=== PATIENT | female | born 1960 | race Caucasian/White ===

== ENCOUNTER 2016-06-28 08:29 | Emergency (ER) | END 2016-06-28 09:40 | disposition home or self-care (01) | DX: J06.9 Acute upper respiratory infection, unspecified (principal) ==

== ENCOUNTER 2016-11-06 10:11 | Emergency (ER) | payer OTHER ==
[~2016-11-06] VITALS: Ht 157.5 cm; Wt 79.0 kg
[~2016-11-06 10:11] MED LIST: BENZ100C70 PO; D-ME473S18 PO; FLUT9.9S NASAL; PSEU30TA38 PO
[2016-11-06 10:15] VITALS: Ht 157.5 cm; Wt 79.0 kg
[2016-11-06] MEDS ORDERED: AMO500 PO (10:34)
[2016-11-06] MEDS ORDERED: LIDO20SO19 MM (10:34)
--- NOTE | 2016-11-06 11:12 | ERD ---
ER Documentation Chief Complaint Date/Time DATE: 11/06/16 TIME: 11:10 Chief Complaint left jaw pain x 5 days HPI 56-year-old female comes in with left-sided facial swelling that started 5 days ago. She states that there is a small sore in the left upper side of her mouth and goes to her cheek. Pain is localized, worse with direct pressure, described as sharp. She has tried rinsing the area with warm water without any relief. She has not had any fevers or chills or dental pain. Denies trauma. No trouble swallowing or opening or closing the jaw. ROS All systems reviewed and are negative except as per history of present illness. Medications Home Meds Active Scripts Lidocaine (Lidocaine Viscous) 100 Ml Soln, 10 ML MM BID, #100 ML Prov:JESSENIA GARDUNO PA-C 11/06/16 Amoxicillin* (Amoxicillin*) 500 Mg Cap, 500 MG PO TID for 10 Days, CAP Prov:JESSENIA GARDUNO PA-C 11/06/16 Dextromethorphan Hb-Promethazine Hcl (Promethazine DM Syrup) 473 Ml Syrup, 5 ML PO Q6H Y for COUGH, #4 OZ Prov:WM WANG PA-C 06/28/16 Benzonatate* (Tessalon Perle*) 100 Mg Capsule, 100 MG PO TID, #30 CAP Prov:WM WANG PA-C 06/28/16 Fluticasone Propionate (Flonase Allergy Relief) 9.9 Ml [place].susp, 1 SPRAY NASAL DAILY, #1 BOTTLE TO EACH NOSTRIL Prov:WM WANG PA-C 06/28/16 Pseudoephedrine Hcl* (Pseudoephedrine Hcl*) 30 Mg Tablet, 30 MG PO Q6 Y for CONGESTION, #30 TAB Prov:WM WANG PA-C 06/28/16 Allergies Allergies: Coded Allergies: No Known Allergy (Unverified , 09/24/13) PMhx/Soc History of Surgery: Yes (30 years ago) Anesthesia Reaction: No Hx Neurological Disorder: No Hx Respiratory Disorders: No Hx Cardiac Disorders: No Hx Psychiatric Problems: No Hx Miscellaneous Medical Probl: No Hx Alcohol Use: No Hx Substance Use: No Hx Tobacco Use: No Physical Exam Vitals Vital Signs Date Time Temp Pulse Resp B/P Pulse Ox O2 Delivery O2 Flow Rate FiO2 11/06/16 10:15 98.1 78 18 133/63 99 Physical Exam General: Well-developed, well-nourished. The patient appears in no acute distress. HEENT: Head is normocephalic, atraumatic. No scleral icterus. No dental infection, gingival is normal, there is a sore on the left upper side of the mouth, is approximately 1.5 cm, white, without erythema, induration or fluctuance, it is tender to palpation. There is mild facial swelling involved correlating to below the left zygomatic arch, there are no bony deformities, no abscess or cellulitis to the skin. Neck: Supple. Nontender. Lungs: Clear to auscultation. Normal air movement. Heart: Regular rate and rhythm. S1 and S2 are normal. No murmurs, gallops, or rubs. Abdomen: Nondistended. Extremities: No clubbing or cyanosis. Moving extremities x 4. No weakness. Neurologic: Alert and oriented 3. No focal deficits. Normal speech and gait. Skin: Normal turgor. No rash or lesions. Procedures/MDM 56-year-old female comes in with a mouth sore, there is localized swelling, the swelling does go to the sheet given the location however there is no evidence of facial cellulitis or abscess, dental abscess, trismus, jaw fracture jaw dislocation. She will be given viscous lidocaine for swishing for symptomatic relief and amoxicillin given the presentation for 5 days with swelling. Departure Diagnosis: Primary Impression: Mouth sore Condition: Good Patient Instructions: Stomatitis (Child) Additional Instructions: Call your primary care doctor TOMORROW for an appointment during the next 1-2 days.See the doctor sooner or return here if your condition worsens before your appointment time. JESSENIA GARDUNO PA-C Nov 06, 2016 11:12
== END 2016-11-06 10:52 | disposition home or self-care (01) ==
LOC: FTE 10:11
DX: K13.79 Other lesions of oral mucosa (principal)
CPT/HCPCS: 99284

== ENCOUNTER 2017-02-18 19:59 | Inpatient (IN) | payer OTHER ==
[~2017-02-18] VITALS: Ht 149.9 cm; Wt 82.6 kg
[~2017-02-18 19:59] MED LIST changes: +AMOX500C2 PO; +LIDO20SO19 MM
[2017-02-18] MEDS ORDERED: ASPIRIN 325 MG TAB PO STA (20:27)
--- NOTE | 2017-02-18 20:46 | RADRPT ---
PROCEDURE: XR Chest. CLINICAL INDICATION: Chest pain. TECHNIQUE: Single frontal view. COMPARISON: 09/24/2013. FINDINGS: The lungs are clear. The heart size is normal. There is no pleural effusion. There is no pneumothorax. There is left shoulder calcific tendonitis. IMPRESSION: 1. Left shoulder calcific tendonitis. 2. Otherwise normal chest radiograph. 3. No other change from 09/24/2013. RPTAT: QQ .Darrin Miller MD, MD Date Time Electronically viewed and signed by .Darrin Miller MD, MD on 02/18/2017 20:46 .R/
[2017-02-18 21:30] LABS: BASOPHIL # 0.1 10^3/ul (0.0-0.1); BASOPHILS % 0.8 % (0.0-2.0); EOSINOPHILS # 0.4 10^3/ul (0.0-0.5); EOSINOPHILS % 3.8 % (0.0-7.0); HEMATOCRIT 36.4 % (37.0-47.0); HEMOGLOBIN 12.3 g/dl (12.0-16.0); LYMPHOCYTES # 3.9 10^3/ul (0.8-2.9); LYMPHOCYTES % 34.1 % (15.0-51.0); MEAN CORPUSCULAR HEMOGLOBIN 28.5 pg (29.0-33.0); MEAN CORPUSCULAR HGB CONC 33.8 g/dl (32.0-37.0); MEAN CORPUSCULAR VOLUME 84.5 fl (82.0-101.0); MEAN PLATELET VOLUME 12.7 fl (7.4-10.4); MONOCYTE # 0.7 10^3/ul (0.3-0.9); MONOCYTES % 6.3 % (0.0-11.0); NEUTROPHIL # 6.3 10^3/ul (1.6-7.5); NEUTROPHILS % 54.5 % (39.0-77.0); PLATELET COUNT 146 10^3/UL (140-415); RED BLOOD COUNT 4.31 10^6/ul (4.20-5.40); RED CELL DISTRIBUTION WIDTH 14.7 % (11.5-14.5); WHITE BLOOD COUNT 11.6 10^3/ul (4.8-10.8)
[2017-02-18 21:44] LABS: INR 0.92; PROTIME 12.4 Sec (12.2-14.2)
[2017-02-18 21:46] LABS: ALANINE AMINOTRANSFERASE 74 IU/L (13-69); ALBUMIN 4.1 g/dl (3.3-4.9); ALBUMIN/GLOBULIN RATIO 1.05; ALKALINE PHOSPHATASE 118 IU/L (42-121); ANION GAP 12 (8-16); ASPARTATE AMINO TRANSFERASE 49 IU/L (15-46); BILIRUBIN,INDIRECT 0.3 mg/dl (0-1.1); BILIRUBIN,TOTAL 0.3 mg/dl (0.2-1.3); BLOOD UREA NITROGEN 22 mg/dl (7-20); CARBON DIOXIDE 26 mmol/L (21-31); CHLORIDE 106 mmol/L (97-110); CREATINE KINASE 79 IU/L (23-200); CREATININE 1.15 mg/dl (0.44-1.00); GLUCOSE 105 mg/dl (70-220); POTASSIUM 4.2 mmol/L (3.5-5.1); SODIUM 140 mmol/L (135-144)
[2017-02-18 21:59] LABS: B-TYPE NATRIURETIC PEPTIDE 56 PG/ML (0-125); CK-MB 1.46 ng/ml (0.0-2.4)
[2017-02-18 22:06] LABS: TROPONIN-I < 0.012 ng/ml (0.00-0.12)
--- NOTE | 2017-02-18 22:22 | ERA ---
ER Documentation Chief Complaint Date/Time DATE: 02/18/17 TIME: 22:17 Chief Complaint chest pain x 2 days HPI This is a 57-year-old female with no past medical history presents to the emergency department complaining of 2 days of intermittent chest pressure. She states the chest pressure is localized to the left side. It does radiate to the left arm. She stated the pain will last for roughly 20 seconds and then spontaneously resolved. She has had roughly 10 episodes of this chest pain in the past 48 hours but significantly worsened just prior to arrival where was 7 out of 10 in intensity. She states the pain does not radiate to the back. She had associated symptoms of nausea but experienced no diaphoresis or emesis. She indicates she does not smoke cigarettes. Her mother had a heart attack at 79 years of age. She denies any shortness of breath at rest or exertion. She denies any blunt or penetrating chest or abdominal trauma. She did not take any analgesic medication prior to arrival ROS All systems reviewed and are negative except as per history of present illness. Medications Home Meds Active Scripts Lidocaine (Lidocaine Viscous) 100 Ml Soln, 10 ML MM BID, #100 ML Prov:JESSENIA GARDUNO PA-C 11/06/16 Amoxicillin* (Amoxicillin*) 500 Mg Cap, 500 MG PO TID for 10 Days, CAP Prov:JESSENIA GARDUNO PA-C 11/06/16 Dextromethorphan Hb-Promethazine Hcl (Promethazine DM Syrup) 473 Ml Syrup, 5 ML PO Q6H Y for COUGH, #4 OZ Prov:WM WANG PA-C 06/28/16 Benzonatate* (Tessalon Perle*) 100 Mg Capsule, 100 MG PO TID, #30 CAP Prov:WM WANG PA-C 06/28/16 Fluticasone Propionate (Flonase Allergy Relief) 9.9 Ml [place].susp, 1 SPRAY NASAL DAILY, #1 BOTTLE TO EACH NOSTRIL Prov:WM WANG PA-C 06/28/16 Pseudoephedrine Hcl* (Pseudoephedrine Hcl*) 30 Mg Tablet, 30 MG PO Q6 Y for CONGESTION, #30 TAB Prov:WM WANG PA-C 06/28/16 Allergies Allergies: Coded Allergies: No Known Allergy (Unverified , 02/18/17) PMhx/Soc History of Surgery: Yes (30 years ago) Anesthesia Reaction: No Hx Neurological Disorder: No Hx Respiratory Disorders: No Hx Cardiac Disorders: No Hx Psychiatric Problems: No Hx Miscellaneous Medical Probl: No Hx Alcohol Use: No Hx Substance Use: No Hx Tobacco Use: No Smoking Status: Never smoker Physical Exam Vitals Vital Signs Date Time Temp Pulse Resp B/P Pulse Ox O2 Delivery O2 Flow Rate FiO2 02/18/17 20:06 98.9 76 20 141/66 97 Physical Exam Constitutional:Well-developed. Well-nourished. HEENT:Normocephalic. Atraumatic.Pupils were equal round reactive to light. Moist mucous membranes.No tonsillar exudates. Neck: No nuchal rigidity. No lymphadenopathy. No posterior cervical spine tenderness or step-offs. Respiratory: Not using accessory muscles of respiration.Lungs were clear to auscultation bilaterally. No rhonchi. No rales. No wheezing. Cardiovascular: Regular rate regular rhythm.No murmurs. No rubs were appreciated.S1, S2 normal. Distal pulses are palpable 2+ bilaterally. GI: Abdomen was soft. Nontender. Non Distended. No pulsatile abdominal masses or bruits. No rebound. No guarding. Bowel sounds were present and normal. Muscle skeletal: Full range of motion of both the upper and lower extremities bilaterally.Normal muscle tone.No assymetrical calf tenderness or swelling. Skin: No petechia, no purpura. No lesions on the palms or the soles of the feet. No maculopapular rash. NEURO: Patient was alert, awake, orientated x3.No facial droop. Gait observed and normal with no ataxia.Speech had regular rate and rhythm. No focal neurological deficits. Result Diagram: 02/18/17204402/18/172044 Results 24 hrs Laboratory Tests Test 02/18/17 20:45 White Blood Count 11.610^3/ul Red Blood Count 4.3110^6/ul Hemoglobin 12.3g/dl Hematocrit 36.4% Mean Corpuscular Volume 84.5fl Mean Corpuscular Hemoglobin 28.5pg Mean Corpuscular Hemoglobin Concent 33.8g/dl Red Cell Distribution Width 14.7% Platelet Count 82150^3/UL Mean Platelet Volume 12.7fl Neutrophils % 54.5% Lymphocytes % 34.1% Monocytes % 6.3% Eosinophils % 3.8% Basophils % 0.8% Nucleated Red Blood Cells % 0.0/100WBC Neutrophils # 6.310^3/ul Lymphocytes # 3.910^3/ul Monocytes # 0.710^3/ul Eosinophils # 0.410^3/ul Basophils # 0.110^3/ul Nucleated Red Blood Cells # 0.010^3/ul Prothrombin Time 12.4Sec Prothrombin Time Ratio 1.0 INR International Normalized Ratio 0.92 Activated Partial Thromboplast Time 35.0Sec Sodium Level 140mmol/L Potassium Level 4.2mmol/L Chloride Level 106mmol/L Carbon Dioxide Level 26mmol/L Anion Gap 12 Blood Urea Nitrogen 22mg/dl Creatinine 1.15mg/dl Glucose Level 105mg/dl Calcium Level 9.0mg/dl Total Bilirubin 0.3mg/dl Direct Bilirubin 0.00mg/dl Indirect Bilirubin 0.3mg/dl Aspartate Amino Transf (AST/SGOT) 49IU/L Alanine Aminotransferase (ALT/SGPT) 74IU/L Alkaline Phosphatase 118IU/L Creatine Kinase 79IU/L Creatine Kinase Index 1.8 Creatinine Kinase MB (Mass) 1.46ng/ml Troponin I < 0.012ng/ml B-Type Natriuretic Peptide 56PG/ML Total Protein 8.0g/dl Albumin 4.1g/dl Globulin 3.90g/dl Albumin/Globulin Ratio 1.05 Lipase 76U/L Current Medications Medications (Trade) Dose Ordered Sig/Randy Route PRN Reason Start Time Stop Time Status Last Admin Dose Admin Aspirin (Aspirin) 325 mg ONCE STAT PO 02/18/17 20:27 02/18/17 20:29 DC 02/18/17 21:01 Nitroglycerin (Nitroglycerin (Sl Tab) 0.4 Mg) 1 tab Q5M UP TO 3 DOSES PRN SL CHEST PAIN 02/18/17 20:30 Procedures/MDM The patient presented to the emergency department with chest pain. My clinical evaluation and workup was to distinguish minor causes of chest pain from acute life threatening conditions such as myocardial infarction, pulmonary embolism, aortic dissection, esophageal rupture, cardiac tamponade. The patient was placed on a monitoring tech and continuous pulse oximetry. IV access established by nursing staff. The patient was given 325 mg of aspirin and 0.4 mg of nitroglycerin. The pain improved. I did feel the patient required admission for serial 12-lead EKG tracings and cardiac set of enzymes. The patient's troponin was normal that the patient had changes on her 12-lead EKG tracing I did feel she required admission there was no evidence however of ST segment elevation. 12 Lead EKG tracing ordered and reviewed by myself showed: Normal sinus rhythm of 73 bpm and no arrhythmia. MS interval normal. QRS duration 1 into the 130 ms with an RSR prime pattern and a right bundle branch block. There is also left ventricular hypertrophy utilizing the Arnulfo criteria No ST segment elevation No ST segment depression. No changes consistent with acute ischemia. The patient's primary care physician does not admit to this hospital and therefore the patient will be admitted to the hospitalist. Departure Diagnosis: Primary Impression: Chest pain Qualified Code: R07.9 - Chest pain, unspecified type Condition: LORENA Infante Feb 18, 2017 22:22
--- NOTE | 2017-02-18 23:45 | HP ---
Date/Time of Note Date/Time of Note DATE: 02/18/17 TIME: 23:40 Assessment/Plan VTE Prophylaxis VTE Prophylaxis Intervention: LMWH Lines/Catheters IV Catheter Type (from Nrs): Saline Lock Assessment/Plan Chief Complaint/Hosp Course This is a 49 year female being admitted to the telemetry floor for: #1 chest pain: Rule out ACS versus other cardiac etiology. The patient reports symptoms of orthopnea and lower extremity swelling and chest pain her BNP is 56 which does make CHF less likely. However we will obtain an echocardiogram to evaluate the heart morphology. We will trend cardiac enzymes 3 4 set was negative. Will consult cardiology. The lower extremity edema could also be part of obstructive sleep apnea versus obesity hypoventilation syndrome. Her EKG was normal sinus rhythm at 70 bpm approximately end of note there was also right bundle branch block. #2 obesity: We will check a hemoglobin A1c, lipid panel, TSH. Her lower extremity edema may also be a combination of obstructive sleep apnea versus obesity hypoventilation syndrome secondary to her obesity. #3 HPI: Previous creatinine was 0.84 from some years ago. This likely could be prerenal etiology at this time. Will obtain a urine microscopic and trend BMPs to see if creatinine improves with p.o. fluid hydration. #4 history of CVA: Patient does not have any residual focal neurological deficits or any hemiparesis. Not on any medications at this time. Patient likely will need to be initiated on statin and aspirin prior to discharge #5 hyperlipidemia: Check lipid panel #6 mild transaminitis: Patient denies any right upper quadrant pain. At the current time will monitor this and if there remains elevation in LFTs will order right upper quadrant ultrasound. #7 DVT and GI prophylaxis: Lovenox, acid hola Further treatment strategy will be implemented as per the clinical course Problems: HPI/ROS Admit Date/Time Admit Date/Time Hx of Present Illness cc: chest pain This is a 57-year-old female with no past medical history presents to the emergency department complaining of 2 days of intermittent chest pressure. She states the chest pressure is localized to the left side. It does radiate to the left arm. She stated the pain will last for roughly 20 seconds and then spontaneously resolved. She has had roughly 10 episodes of this chest pain in the past 48 hours but significantly worsened just prior to arrival where was 7 out of 10 in intensity. She states the pain does not radiate to the back. She had associated symptoms of nausea but experienced no diaphoresis or emesis. She indicates she does not smoke cigarettes. Her mother had a heart attack at 79 years of age. She does report that at times she feels short of breath when she is lying down flat and sometimes she notices her feet being swollen. She denies any blunt or penetrating chest or abdominal trauma. She did not take any analgesic medication prior to arrival allergies: nkda meds: see jul ROS Const: As per HPI Eyes : No pain discharge or redness or change in visual acuity ENT: No pain, sore throat, congestion, congestion, dysphagia or discharge Respiratory: As per HPI Cardiovascular: As per HPI GI : no change in appetite, abdominal pain, nausea, vomiting, diarrhea, constipation, or change in the color his stool Genitourinary: No dysuria, hematuria, flank pain , discharge or CVA tenderness Musculoskeletal: No joint pain, back pain, neck pain, restricted range of motion in neck or joints Skin: No rash, bruising or hives Neuro: No headache, dizziness, syncope, seizure, focal weakness Endocrine: No polyuria, polydipsia, temperature intolerance Psych: No hallucination, depression, anxiety or suicidal ideation Vascular: As per HPI PMH/Family/Social Past Medical History hld, cva Past Surgical History x 3 Family History Significant Family History: cancer (gastric ca), diabetes, hypertension Social History Alcohol Use: none Smoking Status: Never smoker Drug Use: none Exam/Review of Systems Vital Signs Vitals Vital Signs Date Time Temp Pulse Resp B/P Pulse Ox O2 Delivery O2 Flow Rate FiO2 02/18/17 22:30 70 17 125/65 96 Room Air 02/18/17 20:06 98.9 Exam Exam General: Patient is a obese female lying in bed in no acute distress HEENT: Atraumatic, normocephalic. The pupils are equal, round and reactive. Extraocular motor are intact Neck: Supple with full range of motion. No rigidity or meningismus Chest: Nontender Lungs: Clear to auscultation bilaterally no crackles rales or wheezing Heart: Normal S1-S2, Regular rhythm and rate. Possible left-sided systolic murmur Abdomen: Soft , nontender, nondistended , bowel sounds are present. No guarding no rebound tenderness , No masses or organomegaly. No costovertebral temporal angle mass Extremities: Normal to inspection, no edema no cyanosis, n Neurologic: Normal mental status, speech normal, cranial nerves II through XII are intact, motor and sensory are intact, no focal weakness Additional Comments Normal sinus rhythm of 73 bpm and no arrhythmia. [place] interval normal. QRS duration 1 into the 130 ms with an RSR prime pattern and a right bundle branch block. No ST segment elevation No ST segment depression. No changes consistent with acute ischemia. As per ED physician augmentation PROCEDURE: XR Chest. CLINICAL INDICATION: Chest pain. TECHNIQUE: Single frontal view. COMPARISON: 09/24/2013. FINDINGS: The lungs are clear. The heart size is normal. There is no pleural effusion. There is no pneumothorax. There is left shoulder calcific tendonitis. IMPRESSION: 1. Left shoulder calcific tendonitis. 2. Otherwise normal chest radiograph. 3. No other change from 09/24/2013. RPTAT: QQ .Darrin Miller MD, MD Date Time Electronically viewed and signed by .Darrin Miller MD, MD on 02/18/2017 20:46 .R/ CC: LORENA CHAPIN Labs Result Diagram: 02/18/17204402/18/172044 SONIYA DUNN Feb 18, 2017 23:45
[2017-02-19] VITALS (12 sets, daily range): BP systolic 111–152; BP diastolic 57–70; PULSE 62–75; RESP 17–19; Ht 149.9 cm; Wt 82.6 kg
[2017-02-19] MEDS ORDERED: NACL 0.9% 3 ML SYG IV SCH
[2017-02-19] MEDS ORDERED: ACETAMINOPHEN 325 MG TAB PO PRN
[2017-02-19] MEDS ORDERED: ONDANSETRON 4 MG INJ IV PRN
[2017-02-19] MEDS ORDERED: DOCUSATE SODIUM 100 MG CAP PO PRN
[2017-02-19] MEDS ORDERED: morphine 2 MG INJ IV PRN
[2017-02-19] MEDS ORDERED: BISACODYL (EC) 5 MG TAB PO PRN
[2017-02-19 07:16] LABS: BASOPHIL # 0.1 10^3/ul (0.0-0.1); EOSINOPHILS # 0.5 10^3/ul (0.0-0.5); EOSINOPHILS % 4.6 % (0.0-7.0); HEMATOCRIT 36.2 % (37.0-47.0); HEMOGLOBIN 11.2 g/dl (12.0-16.0); LYMPHOCYTES # 3.1 10^3/ul (0.8-2.9); LYMPHOCYTES % 31.8 % (15.0-51.0); MEAN CORPUSCULAR HEMOGLOBIN 26.2 pg (29.0-33.0); MEAN CORPUSCULAR HGB CONC 30.9 g/dl (32.0-37.0); MEAN CORPUSCULAR VOLUME 84.8 fl (82.0-101.0); MONOCYTE # 0.6 10^3/ul (0.3-0.9); MONOCYTES % 5.7 % (0.0-11.0); NEUTROPHIL # 5.5 10^3/ul (1.6-7.5); NEUTROPHILS % 56.5 % (39.0-77.0); PLATELET COUNT 130 10^3/UL (140-415); RED BLOOD COUNT 4.27 10^6/ul (4.20-5.40); WHITE BLOOD COUNT 9.7 10^3/ul (4.8-10.8)
[2017-02-19 07:27] LABS: INR 0.97; PROTIME 12.9 Sec (12.2-14.2)
[2017-02-19 07:28] LABS: PARTIAL THROMBOPLASTIN TIME 32.6 Sec (25.0-35.0)
[2017-02-19 07:32] LABS: CREATINE KINASE 61 IU/L (23-200)
[2017-02-19 07:34] LABS: ALBUMIN 3.5 g/dl (3.3-4.9); ALBUMIN/GLOBULIN RATIO 0.94; BILIRUBIN,INDIRECT 0.3 mg/dl (0-1.1); BILIRUBIN,TOTAL 0.3 mg/dl (0.2-1.3); CALCIUM 9.1 mg/dl (8.4-10.2); CHOL/HDL RATIO 9.3 RATIO; CREATININE 0.84 mg/dl (0.44-1.00); MAGNESIUM 1.8 mg/dl (1.7-2.5); POTASSIUM 4.5 mmol/L (3.5-5.1); TOTAL PROTEIN 7.2 g/dl (6.1-8.1)
[2017-02-19 07:49] LABS: CK-MB 1.19 ng/ml (0.0-2.4)
[2017-02-19 08:00] LABS: TROPONIN-I < 0.012 ng/ml (0.00-0.12)
[2017-02-19 08:04] LABS: THYROID STIMULATING HORMONE 3.15 MIU/L (0.465-4.680)
[2017-02-19] MEDS: FAMOTIDINE 20 MG TAB PO SCH (09:33)
[2017-02-19] MEDS: ENOXAPARIN 30 MG/0.3 ML SYG SC SCH (09:38)
--- NOTE | 2017-02-19 10:51 | PN ---
Date/Time of Note Date/Time of Note DATE: 02/19/17 TIME: 10:45 Assessment/Plan VTE Prophylaxis VTE Prophylaxis Intervention: LMWH Lines/Catheters [facility] Saline Lock Urinary Cath still in place: No Assessment/Plan Assessment/Plan 1. Left sided chest pain, negative troponin, follow up with cardiology 2. Dyslipidemia with hypertriglyceridemia, start on lopid 3. Acute renal injury, resolved 4. h/o of CVA, aspirin and lopid 5. Obesity 6. DVT and GI prophylaxis: Lovenox, acid hola Subjective 24 Hr Interval Summary Free Text/Dictation no chest pain or shortness of breath today Exam/Review of Systems Vital Signs Vitals Vital Signs Date Time Temp Pulse Resp B/P Pulse Ox O2 Delivery O2 Flow Rate FiO2 02/19/17 08:00 62 02/19/17 07:31 97.6 18 111/57 97 02/18/17 22:30 Room Air Intake and Output 02/18/17 02/18/17 02/19/17 15:00 23:00 07:00 Intake Total 600 ml Balance 600 ml Exam Constitutional: alert, obese, oriented, well developed Psych: nl mood/affect, no complaints Head: atraumatic, normocephalic Eyes: EOMI, PERRL, nl conjunctiva, nl lids ENMT: nl external ears & nose, nl lips & teeth, nl nasal mucosa & septum Neck: non-tender, supple, No bruits, No jvd, No masses, No nuchal rigidity, No other, No thyromegaly Respiratory: clear to auscultation, normal air movement, No congested cough, No crackles/rales, No diminished breath sounds, No intercostal retraction, No labored breathing, No other, No respirations, No tactile fremitus, No wheezing Cardiovascular: nl pulses, regular rate and rhythm, No S3, No S4, No bruits, No diastolic murmur, No edema, No gallop, No irregular rhythm, No jugular venous distention (JVD), No murmurs/extra sounds, No other, No rub, No systolic murmur Gastrointestinal: nl liver, spleen, non-tender, soft, No ascites, No bowel sounds, No distended, No firm, No hepatomegaly, No mass , No other, No rebound or guarding, No splenomegaly, No surgical scars, No tender Musculoskeletal: nl extremities to inspection Extremities: normal pulses, No calf tenderness, No clubbing, No cyanosis, No edema, No other, No palpable cord, No pitting pedal edema, No tenderness Neurological: QA MANAGER II-XII intact, nl mental status, nl speech, nl strength Skin: nl turgor Lymph: nl lymph nodes Results Result Diagram: 02/19/17 0618 02/19/17 0618 Results 24 hrs Laboratory Tests Test 02/18/17 20:45 02/19/17 01:00 02/19/17 06:18 White Blood Count 11.6 H 9.7 Red Blood Count 4.31 4.27 Hemoglobin 12.3 11.2 L Hematocrit 36.4 L 36.2 L Mean Corpuscular Volume 84.5 84.8 Mean Corpuscular Hemoglobin 28.5 L 26.2 L Mean Corpuscular Hemoglobin Concent 33.8 30.9 L Red Cell Distribution Width 14.7 H 15.0 H Platelet Count 146 143 130 L Mean Platelet Volume 12.7 H 12.0 H Neutrophils % 54.5 56.5 Lymphocytes % 34.1 31.8 Monocytes % 6.3 5.7 Eosinophils % 3.8 4.6 Basophils % 0.8 1.0 Nucleated Red Blood Cells % 0.0 0.0 Neutrophils # 6.3 5.5 Lymphocytes # 3.9 H 3.1 H Monocytes # 0.7 0.6 Eosinophils # 0.4 0.5 Basophils # 0.1 0.1 Nucleated Red Blood Cells # 0.0 0.0 Prothrombin Time 12.4 12.9 Prothrombin Time Ratio 1.0 1.0 INR International Normalized Ratio 0.92 0.97 Activated Partial Thromboplast Time 35.0 32.6 Sodium Level 140 139 Potassium Level 4.2 4.5 Chloride Level 106 107 Carbon Dioxide Level 26 26 Anion Gap 12 11 Blood Urea Nitrogen 22 H 21 H Creatinine 1.15 H 0.84 Glucose Level 105 110 Calcium Level 9.0 9.1 Total Bilirubin 0.3 0.3 Direct Bilirubin 0.00 0.00 Indirect Bilirubin 0.3 0.3 Aspartate Amino Transf (AST/SGOT) 49 H 42 Alanine Aminotransferase (ALT/SGPT) 74 H 79 H Alkaline Phosphatase 118 90 Creatine Kinase 79 61 Creatine Kinase Index 1.8 2.0 Creatinine Kinase MB (Mass) 1.46 1.19 Troponin I < 0.012 < 0.012 B-Type Natriuretic Peptide 56 Total Protein 8.0 7.2 Albumin 4.1 3.5 Globulin 3.90 H 3.70 H Albumin/Globulin Ratio 1.05 0.94 Lipase 76 Hemoglobin A1c 6.1 H Magnesium Level 1.8 Triglycerides Level 597 H Cholesterol Level 261 H LDL Cholesterol, Calculated 114 HDL Cholesterol 28 L Cholesterol/HDL Ratio 9.3 Thyroid Stimulating Hormone (TSH) 3.150 Medications Medications Current Medications Ondansetron HCl (Zofran Inj) 4 mg Q6H PRN IV NAUSEA AND/OR VOMITING; Start at 00:00 Acetaminophen (Tylenol Tab) 650 mg Q6H PRN PO PAIN LEVEL 1-3 OR FEVER; Start at 00:00 Morphine Sulfate (morphine) 2 mg Q4H PRN IV PAIN LEVEL 7-10; Start 02/19/17 at 00:00 Docusate Sodium (Colace) 100 mg Q12H PRN PO CONSTIPATION; Start 02/19/17 at 00: 00 Bisacodyl (Dulcolax) 5 mg DAILY PRN PO CONSTIPATION; Start 02/19/17 at 00:00 Famotidine (Pepcid) 20 mg DAILY PO Last administered on 02/19/17 09:33; Admin Dose 20 MG; Start 02/19/17 at 09:00 Enoxaparin Sodium (Lovenox) 30 mg DAILY SC Last administered on 02/19/17 09:38 ; Admin Dose 30 MG; Start 02/19/17 at 09:00 GOLDY SILVERMAN MD Feb 19, 2017 10:51
[2017-02-19] MEDS: NITROGLYCERIN (SL) 0.4 MG TAB SL PRN ×2 (11:44→20:14)
[2017-02-19] MEDS: GEMFIBROZIL 600 MG TAB GTB SCH ×2 (12:56→20:14)
[2017-02-19 13:23] LABS: CREATINE KINASE 59 IU/L (23-200)
[2017-02-19 13:37] LABS: CK-MB 1.15 ng/ml (0.0-2.4); TROPONIN-I < 0.012 ng/ml (0.00-0.12)
--- NOTE | 2017-02-19 15:40 | RADRPT ---
Echocardiogram Report Patient Name: DAVID GARCIA Gender: Female Date: 1960 Study Date: 19-Feb-2017 Child And Adolescent Psychologist: [address] [facility] Location: 5538 Ref. Physician: SONIYA DUNN Quality: Adequate Procedures: Transthoracic echocardiogram with complete 2D, M-Mode, and doppler examination. Indications: Chest Pain. 2D/M Mode Doppler Measurement Value Normal Ranges Measurement Value Normal Ranges LVIDd 2D 3.8 3.5 - 5.6 cm AV Peak Guevara 1.7 m/sec LVIDs 2D 1.9 2.1 - 4.1 cm AV Peak PG 11.0 mmHg LVPWd 2D 1.3 0.6 - 1.1 cm LVOT Peak Guevara 1.1 m/sec IVSd 2D 1.2 0.6 - 1.1 cm LVOT Peak PG 5.2 mmHg AoR Diam 2D 2.2 2.0 - 3.7 cm MV E Peak Guevara 0.8 m/sec EDV 2D 60.0 cm3 MV A Peak Guevara 0.9 m/sec ESV 2D 6.9 cm3 MV E/A 0.9 LA Dimen 2D 2.6 2.3 - 4.0 cm MV Decel Time 196 msec MV Decel Edwards 4 MV E/A 0.9 TR Peak Guevara 2.2 m/sec TR Peak PG 19.1 mmHg RVSP 22.0 mmHg Findings Left Ventricle: Normal left ventricular systolic function. Normal left ventricular cavity size. Moderate concentric left ventricular hypertrophy. Ejection fraction is visually estimated at 65 %. Tissue Doppler/Mitral Doppler indices are consistent with impaired relaxation (Stage I diastolic dysfunction). Right Ventricle: Normal right ventricular size. Normal right ventricular systolic function. Left Atrium: The left atrium is normal in size. Right Atrium: The right atrium is normal in size. Mitral Valve: Mitral valve leaflets appear mildly thickened. Mild mitral annular calcification. Trace mitral regurgitation. Aortic Valve: Normal appearance of the aortic valve. No significant aortic stenosis or insufficiency. Tricuspid Valve: Normal appearance of the tricuspid valve. Estimated peak PA systolic pressure 22 mmHg. There is trace tricuspid regurgitation. Pulmonic Valve: Normal pulmonic valve appearance. Pericardium: Normal pericardium with no significant pericardial effusion. Aorta: Normal aortic root. IVC: Normal size and normal respiratory collapse consistent with normal right atrial pressure. Conclusions 1.Essentially normal heart, structure and function, except grade 1 LV diastolic dysfunction. Electronically Signed By: Ely Fletcher 19-Feb-2017 15:39:58 -0700 Patient Name: DAVID GARCIA Study Date: 19-Feb-2017 [id number]
--- NOTE | 2017-02-19 22:13 | CONS ---
DATE OF ADMISSION: 02/18/2017 DATE OF CONSULTATION: 02/19/2017 REASON FOR CONSULTATION: Chest pain, assess acute coronary syndrome. REFERRING PHYSICIAN: Dr. Orozco from the hospitalist service. HISTORY OF PRESENT ILLNESS: Melvi Hernandez is a 57-year-old female, history of prior CVA, dyslipidemia, who initially underwent complaints of substernal chest pain, described as a pressure-like sensation, left upper chest, radiated to her left arm, occurring at rest. Upon arrival in the emergency department, temperature 98.9, blood pressure 141/66, pulse 76, respiratory rate 20, saturating 97 percent. Patient's labs: White count 11.6, hemoglobin 12.3, platelet count 146. Sodium 140, potassium 4.2, creatinine 0.1, BUN 22, AST 49, ALT 74. LDL 114, HDL 28. TSH 3.1. Triglycerides of 597. INR 0.92. Hemoglobin A1c of 6.1. Patient underwent a chest x-ray, revealing left shoulder calcific tendinitis. Patient's electrocardiogram with normal sinus rhythm, rate of 73, with right bundle-branch block, borderline left axis deviation, left posterior fascicular block, secondary repolarization abnormalities. Patient was subsequently admitted to the floor and since admitted to the floor, has had a total of 3 negative troponins, ruling out for acute myocardial infarction. Patient denies current chest pain but states she had chest pain this morning. Patient underwent a 2D echo interpreted by another ground operations superintendent, revealing a preserved EF. PAST MEDICAL HISTORY: As above in HPI. MEDICATION: Currently in hospital: 1. Lopid 600 mg p.o. b.i.d. 2. Pepcid 20 mg daily. 3. Lovenox subcu daily. 4. p.r.n. 5. Tylenol p.r.n. 6. Morphine p.r.n. 7. Colace p.r.n. 8. Dulcolax. ALLERGIES: NO KNOWN DRUG ALLERGIES. SOCIAL HISTORY: No tobacco, EtOH or illicit drug use. FAMILY HISTORY: No history of early cardiac or early CAD. REVIEW OF SYSTEMS: As above in HPI. CONSTITUTIONAL: No fevers chills. RESPIRATORY: No current shortness of breath. CARDIOVASCULAR: Intermittent chest pain. GASTROINTESTINAL: No vomiting. GENITOURINARY: No hematuria. MUSCULOSKELETAL: Degenerative joint disease. PSYCHIATRIC: Patient denies depression. NEUROLOGIC: A positive history of CVA. PHYSICAL EXAMINATION: VITAL SIGNS: Temperature of 98.5, blood pressure 152/70, pulse 65, respirations 17, satting 92 percent. GENERAL: The patient is alert, awake, in no acute distress. NECK: JVP approximately 8 cm of water. LUNGS: Fair air movement throughout. HEART: Regular rate and rhythm. Normal S1, S2; 1/6 systolic murmur. Nondisplaced PMI. ABDOMEN: Positive bowel sounds, soft. EXTREMITIES: No edema, 1+ pulses, bilateral posterior tibial. LABORATORY: As above in [facility], with most recent today, sodium 139, potassium 4.5, creatinine 0.8, BUN 21. Troponin negative x3. LDL of 114, HDL 28, triglycerides 597, with total cholesterol 261. White blood cell count 9.7, hemoglobin 11.2, platelet count of 130. INR of 0.97. Patient underwent a chest x-ray, revealing no acute cardiopulmonary abnormalities. ECG as above in HPI. No further electrocardiograms for review at this time. IMPRESSION: 1. Chest pain. Assess for acute coronary syndrome. 2. Abnormal electrocardiogram, with right bundle-branch block pattern. 3. History of prior cerebrovascular accident. 4. Dyslipidemia, with low HDL, elevated triglycerides significantly, with increased liver function tests. 5. Renal insufficiency, improved. RECOMMENDATIONS: 1. At this time, would maintain patient on telemetry monitoring to follow rhythm and rate control closely. 2. Continue the patient's sublingual nitroglycerin. 3. Would continue the patient's Lopid at this time for treatment of hypertriglyceridemia. 4. The patient is status post 2D echo, revealing a preserved ejection fraction. 5. Would consider stress testing this patient. If patient has no recurrent symptoms, could be done as an outpatient versus inpatient for ongoing recurrent concerning symptoms. Thank you for allowing me to take part in the care of this patient. I will continue to follow her very closely with you, with recommendations made as patient goes through her inpatient hospital clinical course. Dictated By: Blayne Crouch MD /emilia/jordan /Document#: [id number] CC: Robert Orozco MD;*End*
[2017-02-20] VITALS (10 sets, daily range): BP systolic 111–145; BP diastolic 58–77; PULSE 63–87; RESP 17–19
[2017-02-20 07:38] LABS: BASOPHIL # 0.1 10^3/ul (0.0-0.1); BASOPHILS % 1.3 % (0.0-2.0); EOSINOPHILS # 0.4 10^3/ul (0.0-0.5); EOSINOPHILS % 4.3 % (0.0-7.0); HEMATOCRIT 37.7 % (37.0-47.0); HEMOGLOBIN 11.8 g/dl (12.0-16.0); LYMPHOCYTES % 34.5 % (15.0-51.0); MEAN CORPUSCULAR HGB CONC 31.3 g/dl (32.0-37.0); MEAN CORPUSCULAR VOLUME 83.2 fl (82.0-101.0); MEAN PLATELET VOLUME 12.6 fl (7.4-10.4); MONOCYTE # 0.6 10^3/ul (0.3-0.9); MONOCYTES % 6.7 % (0.0-11.0); NEUTROPHIL # 4.5 10^3/ul (1.6-7.5); NEUTROPHILS % 52.7 % (39.0-77.0); PLATELET COUNT 143 10^3/UL (140-415); RED BLOOD COUNT 4.53 10^6/ul (4.20-5.40); RED CELL DISTRIBUTION WIDTH 14.7 % (11.5-14.5); WHITE BLOOD COUNT 8.6 10^3/ul (4.8-10.8)
[2017-02-20 07:53] LABS: INR 0.99; PROTIME 13.1 Sec (12.2-14.2)
[2017-02-20 07:54] LABS: PARTIAL THROMBOPLASTIN TIME 32.4 Sec (25.0-35.0)
[2017-02-20 07:57] LABS: ALBUMIN 3.9 g/dl (3.3-4.9); ALBUMIN/GLOBULIN RATIO 0.92; BILIRUBIN,INDIRECT 0.6 mg/dl (0-1.1); BILIRUBIN,TOTAL 0.6 mg/dl (0.2-1.3); CALCIUM 9.5 mg/dl (8.4-10.2); CREATININE 0.9 mg/dl (0.44-1.00); POTASSIUM 4.9 mmol/L (3.5-5.1); TOTAL PROTEIN 8.1 g/dl (6.1-8.1)
[2017-02-20] MEDS: ENOXAPARIN 30 MG/0.3 ML SYG SC SCH (09:00)
[2017-02-20] MEDS: FAMOTIDINE 20 MG TAB PO SCH (09:15)
[2017-02-20] MEDS: GEMFIBROZIL 600 MG TAB GTB SCH (09:15)
--- NOTE | 2017-02-20 10:15 | CONS ---
Date/Time of Note Date/Time of Note DATE: 02/20/17 TIME: 10:13 Assessment/Plan Assessment/Plan Additional Assessment/Plan 1. Chest pain. Assess for acute coronary syndrome- r/o [place], no CP now, doubt ischemia. 2. Abnormal electrocardiogram, with right bundle-branch block pattern- kwna f/ up with ECHO to establish EF and pulm pressures. 3. History of prior cerebrovascular accident- primary follows 4. Dyslipidemia, with low HDL, elevated triglycerides significantly, with increased liver function tests. 5. Renal insufficiency, improved- avoid nephrotoxic meds. Consultation Date/Type/Reason Admit Date/Time Feb 18, 2017 at 22:22 Initial Consult Date 24 HR Interval Summary Free Text/Dictation No acute events - BP in good range - no CP now. ROS: No fever, no chills, no nausea, no vomiting, no diarrhea/constipation No recent weight changes No chest pain, no PND, no orthopnea No dizziness, blurred vision No thirst, no heat or cold intolerance Exam/Review of Systems Vital Signs Vitals Vital Signs Date Time Temp Pulse Resp B/P Pulse Ox O2 Delivery O2 Flow Rate FiO2 02/20/17 08:16 87 02/20/17 07:38 98.1 17 111/60 93 02/18/17 22:30 Room Air Intake and Output 02/19/17 02/19/17 02/20/17 15:00 23:00 07:00 Intake Total 950 ml 400 ml Balance 950 ml 400 ml Exam General: WN/WD/NAD, AOx 3 HEENT: Unicetric/atraumatic/EOMI (follow commands) NECK: JVD elevated, no thyromegaly Lymph: no lymphadenopathy HEART: regular with no S3, II/ systolic murmur at apex LUNGS: Coarse sounds ABD: soft, NT, ND, +BS : Intact Neuro: non focal SKIN: chronic changes EXT: trace edema Results Result Diagram: 02/20/17 0602/20/17 0606 Results 24 hrs Laboratory Tests Test 02/19/17 12:45 02/20/17 06:06 Creatine Kinase 59 Creatine Kinase Index 1.9 Creatinine Kinase MB (Mass) 1.15 Troponin I < 0.012 White Blood Count 8.6 Red Blood Count 4.53 Hemoglobin 11.8 L Hematocrit 37.7 Mean Corpuscular Volume 83.2 Mean Corpuscular Hemoglobin 26.0 L Mean Corpuscular Hemoglobin Concent 31.3 L Red Cell Distribution Width 14.7 H Platelet Count 143 Mean Platelet Volume 12.6 H Neutrophils % 52.7 Lymphocytes % 34.5 Monocytes % 6.7 Eosinophils % 4.3 Basophils % 1.3 Nucleated Red Blood Cells % 0.0 Neutrophils # 4.5 Lymphocytes # 3.0 H Monocytes # 0.6 Eosinophils # 0.4 Basophils # 0.1 Nucleated Red Blood Cells # 0.0 Prothrombin Time 13.1 Prothrombin Time Ratio 1.0 INR International Normalized Ratio 0.99 Activated Partial Thromboplast Time 32.4 Sodium Level 138 Potassium Level 4.9 Chloride Level 104 Carbon Dioxide Level 26 Anion Gap 13 Blood Urea Nitrogen 22 H Creatinine 0.90 Glucose Level 122 Calcium Level 9.5 Total Bilirubin 0.6 Direct Bilirubin 0.00 Indirect Bilirubin 0.6 Aspartate Amino Transf (AST/SGOT) 66 H Alanine Aminotransferase (ALT/SGPT) 81 H Alkaline Phosphatase 80 Total Protein 8.1 Albumin 3.9 Globulin 4.20 H Albumin/Globulin Ratio 0.92 Medications Medications Current Medications Ondansetron HCl (Zofran Inj) 4 mg Q6H PRN IV NAUSEA AND/OR VOMITING; Start at 00:00 Acetaminophen (Tylenol Tab) 650 mg Q6H PRN PO PAIN LEVEL 1-3 OR FEVER; Start at 00:00 Morphine Sulfate (morphine) 2 mg Q4H PRN IV PAIN LEVEL 7-10; Start 02/19/17 at 00:00 Docusate Sodium (Colace) 100 mg Q12H PRN PO CONSTIPATION; Start 02/19/17 at 00: 00 Bisacodyl (Dulcolax) 5 mg DAILY PRN PO CONSTIPATION; Start 02/19/17 at 00:00 Famotidine (Pepcid) 20 mg DAILY PO Last administered on 02/20/17 09:15; Admin Dose 20 MG; Start 02/19/17 at 09:00 Enoxaparin Sodium (Lovenox) 30 mg DAILY SC Last administered on 02/19/17 09:38 ; Admin Dose 30 MG; Start 02/19/17 at 09:00 Gemfibrozil (Lopid) 600 mg BID GTB Last administered on 02/20/17 09:15; Admin Dose 600 MG; Start 02/19/17 at 12:00 ROSE MARY MARITNEZ MD Feb 20, 2017 10:15
--- NOTE | 2017-02-20 14:58 | PRO ---
DATE OF PROCEDURE: DESCRIPTION OF PROCEDURE: Under continuous electrocardiographic monitoring with the patient in supine position, 0.4 mg of Regadenoson was injected intravenously over a period of 20 seconds. This was followed by injection of the correct amount of isotope. Following that, the patient was taken to radiology for myocardial perfusion scan. The patient tolerated Lexiscan injection with minimal transient symptoms. There were no complications. The resting blood pressure was 120/60 mmHg. Resting heart rate was 62 ppm. The maximum blood pressure was 145/63 mmHg. The maximum heart rate was 94, BP, and regular. The resting EKG documents normal sinus rhythm and right bundle branch block. There were no electrocardiographic changes and no arrythmias. Dictated By: CRISTI MIN MD /emilia/triston /Document#: [id number]
[2017-02-20] MEDS ORDERED: GEMF600T60 GTB (16:50)
--- NOTE | 2017-02-20 16:50 | PN ---
Date/Time of Note Date/Time of Note DATE: 02/20/17 TIME: 16:49 Assessment/Plan VTE Prophylaxis VTE Prophylaxis Intervention: LMWH Lines/Catheters IV [facility] Saline Lock Urinary Cath still in place: No Assessment/Plan Assessment/Plan 1. Left sided chest pain, negative troponin, awaiting for stress test result 2. Dyslipidemia with hypertriglyceridemia, start on lopid 3. Acute renal injury, resolved 4. h/o of CVA, aspirin and lopid 5. Obesity 6. DVT and GI prophylaxis: Lovenox, acid hola Subjective 24 Hr Interval Summary Free Text/Dictation no chest pain Exam/Review of Systems Vital Signs Vitals Vital Signs Date Time Temp Pulse Resp B/P Pulse Ox O2 Delivery O2 Flow Rate FiO2 02/20/17 16:15 69 02/20/17 16:03 97.6 19 145/63 95 02/18/17 22:30 Room Air Intake and Output 02/19/17 02/19/17 02/20/17 15:00 23:00 07:00 Intake Total 950 ml 400 ml Balance 950 ml 400 ml Exam Constitutional: alert, oriented, well developed Psych: nl mood/affect, no complaints Head: atraumatic, normocephalic Eyes: EOMI, PERRL, nl conjunctiva, nl lids, nl sclera ENMT: nl external ears & nose, nl lips & teeth, nl nasal mucosa & septum Neck: non-tender, supple Respiratory: clear to auscultation, normal air movement, No congested cough, No crackles/rales, No diminished breath sounds, No intercostal retraction, No labored breathing, No other, No respirations, No tactile fremitus, No wheezing Cardiovascular: nl pulses, regular rate and rhythm, No S3, No S4, No bruits, No diastolic murmur, No edema, No gallop, No irregular rhythm, No jugular venous distention (JVD), No murmurs/extra sounds, No other, No rub, No systolic murmur Gastrointestinal: nl liver, spleen, non-tender, soft, No ascites, No bowel sounds, No distended, No firm, No hepatomegaly, No mass , No other, No rebound or guarding, No splenomegaly, No surgical scars, No tender Musculoskeletal: nl extremities to inspection Extremities: normal pulses, No calf tenderness, No clubbing, No cyanosis, No edema, No other, No palpable cord, No pitting pedal edema, No tenderness Neurological: BILL DISTRIBUTOR II-XII intact, nl mental status, nl speech, nl strength Skin: nl turgor Lymph: nl lymph nodes Results Result Diagram: 02/20/17 0602/20/17 0606 Results 24 hrs Laboratory Tests Test 02/20/17 06:06 White Blood Count 8.6 Red Blood Count 4.53 Hemoglobin 11.8 L Hematocrit 37.7 Mean Corpuscular Volume 83.2 Mean Corpuscular Hemoglobin 26.0 L Mean Corpuscular Hemoglobin Concent 31.3 L Red Cell Distribution Width 14.7 H Platelet Count 143 Mean Platelet Volume 12.6 H Neutrophils % 52.7 Lymphocytes % 34.5 Monocytes % 6.7 Eosinophils % 4.3 Basophils % 1.3 Nucleated Red Blood Cells % 0.0 Neutrophils # 4.5 Lymphocytes # 3.0 H Monocytes # 0.6 Eosinophils # 0.4 Basophils # 0.1 Nucleated Red Blood Cells # 0.0 Prothrombin Time 13.1 Prothrombin Time Ratio 1.0 INR International Normalized Ratio 0.99 Activated Partial Thromboplast Time 32.4 Sodium Level 138 Potassium Level 4.9 Chloride Level 104 Carbon Dioxide Level 26 Anion Gap 13 Blood Urea Nitrogen 22 H Creatinine 0.90 Glucose Level 122 Calcium Level 9.5 Total Bilirubin 0.6 Direct Bilirubin 0.00 Indirect Bilirubin 0.6 Aspartate Amino Transf (AST/SGOT) 66 H Alanine Aminotransferase (ALT/SGPT) 81 H Alkaline Phosphatase 80 Total Protein 8.1 Albumin 3.9 Globulin 4.20 H Albumin/Globulin Ratio 0.92 Medications Medications Current Medications Ondansetron HCl (Zofran Inj) 4 mg Q6H PRN IV NAUSEA AND/OR VOMITING; Start at 00:00 Acetaminophen (Tylenol Tab) 650 mg Q6H PRN PO PAIN LEVEL 1-3 OR FEVER; Start at 00:00 Morphine Sulfate (morphine) 2 mg Q4H PRN IV PAIN LEVEL 7-10; Start 02/19/17 at 00:00 Docusate Sodium (Colace) 100 mg Q12H PRN PO CONSTIPATION; Start 02/19/17 at 00: 00 Bisacodyl (Dulcolax) 5 mg DAILY PRN PO CONSTIPATION; Start 02/19/17 at 00:00 Famotidine (Pepcid) 20 mg DAILY PO Last administered on 02/20/17 09:15; Admin Dose 20 MG; Start 02/19/17 at 09:00 Enoxaparin Sodium (Lovenox) 30 mg DAILY SC Last administered on 02/19/17 09:38 ; Admin Dose 30 MG; Start 02/19/17 at 09:00 Gemfibrozil (Lopid) 600 mg BID GTB Last administered on 02/20/17 09:15; Admin Dose 600 MG; Start 02/19/17 at 12:00 Influenza Virus Vaccine (Fluzone) 0.5 ml ONCE ONCE IM* ; Start 02/21/17 at 11:00 ; Stop 02/21/17 at 11:01 GOLDY SILVERMAN MD Feb 20, 2017 16:50
--- NOTE | 2017-02-20 18:45 | RADRPT ---
PROCEDURE: LEXISCAN MYOCARDIAL PERFUSION STUDY CLINICAL INDICATION: 57 -year-old patient with chest pain. TECHNIQUE: Lexiscan 0.4 mg intravenously separate acquisition, gated myocardial perfusion SPECT us ing 32.8 mCi intravenously at stress and 10.5 mCi intravenously at rest was performed using the rest /stress sequence. Poststress SPECT images were obtained in the supine position. COMPARISON: No prior studies. FINDINGS: Perfusion images reveal no evidence of perfusion defects. Poststress gated SPECT images demonstrate no wall motion abnormalities. The left ventricular ejection fraction is calculated at 78% on the stress series. RPTAT:HJJR IMPRESSION: 1. No evidence of perfusion defects. 2. No wall motion abnormalities. 3. The left ventricle ejection fraction at stress is 78% . Physician Billy Date Time Electronically viewed and signed by Physician Billy on 02/20/2017 18:45 JR/
[2017-02-21] MEDS ORDERED: INFLUENZA VIRUS VACCINE 0.5 ML SYG IM* ONE (11:00)
--- NOTE | 2017-02-21 12:28 | DS ---
Date/Time of Note Date/Time of Note DATE: 02/21/17 TIME: 12:25 Discharge Summary Admission/Discharge Info Admit Date/Time Feb 18, 2017 at 22:22 Discharge Date/Time Feb 20, 2017 at 20:15 Discharge Diagnosis 1. Left sided chest pain, atypical, negative stress test 2. Dyslipidemia with hypertriglyceridemia, start on lopid 3. Acute renal injury, resolved 4. h/o of CVA, aspirin and lopid 5. Obesity Patient Condition: Stable Procedures DIAGNOSTIC IMAGING REPORT Patient: DAVID GARCIA : 1960 Age: 57 Sex: F MR #: [id number] DOS: 02/20/17 1000 Ordering MD: JOCELINE RIGGINS MD [place] [facility] [place]Bed[place] [facility] PROCEDURE: LEXISCAN MYOCARDIAL PERFUSION STUDY CLINICAL INDICATION: 57 -year-old patient with chest pain. TECHNIQUE: Lexiscan 0.4 mg intravenously separate acquisition, gated myocardial perfusion SPECT using 32.8 mCi intravenously at stress and 10.5 mCi intravenously at rest was performed using the rest/stress sequence. Poststress SPECT images were obtained in the supine position. COMPARISON: No prior studies. FINDINGS: Perfusion images reveal no evidence of perfusion defects. Poststress gated SPECT images demonstrate no wall motion abnormalities. The left ventricular ejection fraction is calculated at 78% on the stress series. RPTAT:HJJR IMPRESSION: 1. No evidence of perfusion defects. 2. No wall motion abnormalities. 3. The left ventricle ejection fraction at stress is 78% . Physician Billy Date Time Electronically viewed and signed by Physician Billy on 02/20/2017 18:45 JR/ CC: JOCELINE RIGGINS of Present Illness This is a 57-year-old female with no past medical history presents to the emergency department complaining of 2 days of intermittent chest pressure. She states the chest pressure is localized to the left side. It does radiate to the left arm. She stated the pain will last for roughly 20 seconds and then spontaneously resolved. She has had roughly 10 episodes of this chest pain in the past 48 hours but significantly worsened just prior to arrival where was 7 out of 10 in intensity. She states the pain does not radiate to the back. She had associated symptoms of nausea but experienced no diaphoresis or emesis. She indicates she does not smoke cigarettes. Her mother had a heart attack at 79 years of age. She does report that at times she feels short of breath when she is lying down flat and sometimes she notices her feet being swollen. She denies any blunt or penetrating chest or abdominal trauma. She did not take any analgesic medication prior to arrival Hospital Course Chest is is atypical that resolved after admission. Troponin negative, Echo unremarkable. Stress thallium test is negative. No further cardiac work up needed. TG level is 597, patient is started on lopid. Home Meds Active Scripts Gemfibrozil* (Gemfibrozil*) 600 Mg Tablet, 600 MG GTB BID for 30 Days, TAB Prov:GOLDY SILVERMAN MD 02/20/17 Lidocaine (Lidocaine Viscous) 100 Ml Soln, 10 ML MM BID, #100 ML Prov:JESSENIA GARDUNO PA-C 11/06/16 Dextromethorphan Hb-Promethazine Hcl (Promethazine DM Syrup) 473 Ml Syrup, 5 ML PO Q6H Y for COUGH, #4 OZ Prov:WM WANG PA-C 06/28/16 Benzonatate* (Tessalon Perle*) 100 Mg Capsule, 100 MG PO TID, #30 CAP Prov:WM WANG PA-C 06/28/16 Fluticasone Propionate (Flonase Allergy Relief) 9.9 Ml [email or web address], 1 SPRAY NASAL DAILY, #1 BOTTLE TO EACH NOSTRIL Prov:WM WANG PA-C 06/28/16 Pseudoephedrine Hcl* (Pseudoephedrine Hcl*) 30 Mg Tablet, 30 MG PO Q6 Y for CONGESTION, #30 TAB Prov:WM WANG PA-C 06/28/16 Discontinued Scripts Amoxicillin* (Amoxicillin*) 500 Mg Cap, 500 MG PO TID for 10 Days, CAP Prov:JESSENIA GARDUNO PA-C 11/06/16 Follow-up Plan PCP in one week Primary Care Provider GOLDY Cline MD Feb 21, 2017 12:28
--- NOTE | 2017-02-21 14:11 | RADRPT ---
Vent Rate: 66 bpm RR Interval: 0 msec NC Interval: 164 msec QRS Duration: 124 msec QT Interval: 432 msec QTC Interval: 452 msec P-R-T [place]: 38 - -18 - 34 degrees Normal sinus rhythm Right bundle branch block Abnormal ECG Electronically Signed By: Bowen Hennessy [id number]
== END 2017-02-20 20:15 | disposition home or self-care (01) | DRG 313 ==
LOC: E/R 19:59 → MS4 22:22
PROVIDERS: ADMIT Family Medicine; ATTEND Family Medicine
DX: R07.9 Chest pain, unspecified (principal); I45.2 Bifascicular block; E78.5 Hyperlipidemia, unspecified; E66.9 Obesity, unspecified; Z68.36 Body mass index [BMI] 36.0-36.9, adult; Z86.73 Personal history of transient ischemic attack (TIA), and cerebral infarction without residual deficits; R06.01 Orthopnea; M79.89 Other specified soft tissue disorders; N28.9 Disorder of kidney and ureter, unspecified; E78.1 Pure hyperglyceridemia
CPT/HCPCS: 71010; 78452; 80053; 80061; 82550; 82553; 83036; 83690; 83735; 83880; 84443; 84484; 85025; 85049; 85610; 85730; 93005; 93017; 93306; A9500; A9505; J1650